=== PATIENT | female | born 1960 | race Caucasian/White ===

== ENCOUNTER 2018-06-20 13:36 | Emergency (ER) | payer BC, OTHER ==
[2018-06-20] MEDS ORDERED: diphenhydrAMINE 50 MG/ML SDV IVPUSH ONE (14:04)
[2018-06-20] MEDS ORDERED: Sodium Chloride 0.9% 10 ML Syringe FLUSH PRN (14:04)
[2018-06-20] MEDS ORDERED: Ketorolac 30 MG/ML SDV IVPUSH ONE (14:04)
[2018-06-20] MEDS ORDERED: Ondansetron 4 MG/2 ML SDV IVPUSH ONE (14:05)
--- NOTE | 2018-06-20 14:11 | EDM.PDOC ---
ED HPI GENERAL MEDICAL PROBLEM - General Chief Complaint: Headache Stated Complaint: MIGRAINE Time Seen by Provider: 06/20/18 13:50 Source of Information: Reports: Patient, RN Notes Reviewed History Limitations: Reports: No Limitations - History of Present Illness INITIAL COMMENTS - FREE TEXT/NARRATIVE: Patient is a 58-year-old female who presents to the ED for the evaluation of a headache. She states that she has a history of migraines, and this has some of the typical features for normal migraine for her however it is quite severe at this time. She states that she is light sensitive with her headaches. She can normally take an aspirin and that holds it off usually and when they get to be more severe she was given tablets of Toradol for her headache relief. She states that she has had the stomach flu yesterday and is having some nausea and vomiting type symptoms and is unable to keep much down for foods or fluids at this time, so she has not been able to keep any of these medications down as well. She states that her primary care provider is Lorraine Gould. She would rate her pain at a 9 out of 10. Headache Pain Score (Numeric/FACES): 9 - Related Data Allergies Allergy/AdvReac Type Severity Reaction Status Date / Time No Known Allergies Allergy Verified 06/20/18 13:44 Home Meds: Home Meds Diltiazem HCl [Diltiazem ER] 1 tab PO DAILY 06/20/18 [History] Ketorolac Eye Drops. 06/20/18 [History] Prednisolone Acetate/Pf [Prednisolone Acet 1% Eye Drop] 1 drop OP ASDIRECTED [History] Venlafaxine HCl [Venlafaxine ER] 1 tab PO DAILY 06/20/18 [History] ED ROS GENERAL - Review of Systems Review Of Systems: See Below Constitutional: Reports: No Symptoms HEENT: Denies: Vision Change Respiratory: Reports: No Symptoms Cardiovascular: Reports: No Symptoms Endocrine: Reports: No Symptoms GI/Abdominal: Reports: No Symptoms : Reports: No Symptoms Musculoskeletal: Reports: No Symptoms Skin: Reports: No Symptoms Neurological: Reports: Headache Psychiatric: Reports: No Symptoms Hematologic/Lymphatic: Reports: No Symptoms Immunologic: Reports: No Symptoms - Physical Exam Exam: See Below Exam Limited By: No Limitations General Appearance: Alert, WD/WN Eye Exam: Bilateral Eye: EOMI, Normal Inspection, PERRL Ears: Normal External Exam Nose: Normal Inspection Throat/Mouth: Normal Inspection, Normal Lips, Normal Teeth, Normal Oropharynx, Normal Voice, No Airway Compromise Head Exam: Atraumatic, Normocephalic Neck: Normal Inspection, Supple, Non-Tender Respiratory/Chest: No Respiratory Distress, Lungs Clear, Normal Breath Sounds, No Accessory Muscle Use, Chest Non-Tender Cardiovascular: Normal Peripheral Pulses, Regular Rate, Rhythm, No Murmur GI/Abdominal: Normal Bowel Sounds, Soft, No Distention, Tender (diffuse abdominal tenderness, d/t vomiting and cough) Neuro Exam (Abbreviated): Alert, Oriented, Normal Cognition, No Motor/Sensory Deficits Extremities: Normal Inspection, Normal Capillary Refill Psychiatric: Normal Affect, Normal Mood Skin Exam: Warm, Dry, Intact, Normal Color, No Rash Course - Vital Signs Last Recorded V/S: Last Vital Signs Temp 97.7 F 06/20/18 13:46 Pulse 88 06/20/18 13:46 Resp BP 145/85 H 06/20/18 13:46 Pulse Ox 96 06/20/18 13:46 - Orders/Labs/Meds Orders: Active Orders 24 hr Category Date Time Status Peripheral IV Care [RC] . DIRECTED Care 06/20/18 14:04 Ordered Sodium Chloride 0.9% [Normal Saline] 1,000 ml Med 06/20/18 14:15 Ordered IV ASDIRECTED Sodium Chloride 0.9% [Saline Flush] Med 06/20/18 14:04 Ordered 10 ml FLUSH ASDIRECTED PRN Peripheral IV Insertion Adult [OM.PC] Routine Oth 06/20/18 14:04 Ordered Medication Orders Sodium Chloride (Normal Saline) 1,000 mls @ 500 mls/hr IV ASDIRECTED ARCELIA Last Admin: 06/20/18 14:15 Dose: 500 mls/hr Sodium Chloride (Saline Flush) 10 ml FLUSH ASDIRECTED PRN PRN Reason: Keep Vein Open Last Admin: 06/20/18 14:20 Dose: 10 ml Meds: Medications Generic Name Dose Route Start Last Admin Trade Name Freq PRN Reason Stop Dose Admin Sodium Chloride 1,000 mls @ 500 mls/hr 06/20/18 14:15 06/20/18 14:15 Normal Saline IV 500 mls/hr ASDIRECTED ARCELIA Administration Sodium Chloride 10 ml 06/20/18 14:04 06/20/18 14:20 Saline Flush FLUSH 10 ml ASDIRECTED PRN Administration Keep Vein Open Discontinued Medications Generic Name Dose Route Start Last Admin Trade Name [place]ip[place] PRN Reason Stop Dose Admin Diphenhydramine HCl 25 mg 06/20/18 14:04 06/20/18 14:18 Benadryl IVPUSH 06/20/18 14:05 25 mg ONETIME ONE Administration Ketorolac Tromethamine 30 mg 06/20/18 14:04 06/20/18 14:17 Toradol IVPUSH 06/20/18 14:05 30 mg ONETIME ONE Administration Ondansetron HCl 4 mg 06/20/18 14:05 06/20/18 14:15 Zofran IVPUSH 06/20/18 14:06 4 mg ONETIME ONE Administration - Re-Assessments/Exams Free Text/Narrative Re-Assessment/Exam: 06/20/18 14:14 Patient presents to the ED for the evaluation of a headache. I have ordered 30 mg IV Toradol, 4 mg IV Zofran, 25 mg IV Benadryl and IV fluids in management of this. Will re-evaluate after the meds have been given and she has gotten some IV fluids to see if she is feeling much better. 06/20/18 15:23 Patient is reevaluated at bedside and she states that her pain is now at a 5 out of 10, will allow the IV fluids to run in and discharge her home. Departure - Departure Time of Disposition: 15:59 Disposition: Home, Self-Care 01 Condition: Fair Clinical Impression: Headache Qualifiers: Headache type: unspecified Headache chronicity pattern: acute headache Intractability: not intractable Qualified Code(s): R51 - Headache - Discharge Information *PRESCRIPTION DRUG MONITORING PROGRAM REVIEWED*: No *COPY OF PRESCRIPTION DRUG MONITORING REPORT IN PATIENT REY: No Instructions: Dehydration, Adult, [id number], Recurrent Migraine Headache, [id number] Referrals: Lorraine Gould PA-C [Primary Care Provider] - Forms: ED Department Discharge Additional Instructions: You have been evaluated in the ED to a for your headache. You have been given IV Toradol, IV Zofran, IV Benadryl and some IV fluids in management of this. Please follow all previous instructions on how to deal with your migraines if one should develop again. Please return to the ED if her symptoms change or worsen. - My Orders Last 24 Hours: My Active Orders 06/20/18 14:04 Peripheral IV Care [RC] . DIRECTED Sodium Chloride 0.9% [Saline Flush] 10 ml FLUSH ASDIRECTED PRN Peripheral IV Insertion Adult [OM.PC] Routine 06/20/18 14:15 Sodium Chloride 0.9% [Normal Saline] 1,000 ml IV ASDIRECTED - Assessment/Plan Last 24 Hours: My Active Orders 06/20/18 14:04 Peripheral IV Care [RC] . DIRECTED Sodium Chloride 0.9% [Saline Flush] 10 ml FLUSH ASDIRECTED PRN Peripheral IV Insertion Adult [OM.PC] Routine 06/20/18 14:15 Sodium Chloride 0.9% [Normal Saline] 1,000 ml IV ASDIRECTED
[2018-06-20] MEDS ORDERED: Sodium Chloride 0.9% 1,000 ML IV SCH (14:15)
== END 2018-06-20 16:06 | disposition home or self-care (01) ==
LOC: JD.ED 13:36
DX: G43.909 Migraine, unspecified, not intractable, without status migrainosus (principal)
CPT/HCPCS: 96361; 96374; 96375; 99283; J1200; J1885; J2405; J7040; 99284

== ENCOUNTER 2019-10-31 09:13 | Emergency (ER) | payer BC ==
[2019-10-31] MEDS ORDERED: Sodium Chloride 0.9% 10 ML Syringe FLUSH PRN (09:27)
[2019-10-31] MEDS ORDERED: Diltiazem 180 MG Cap.CD PO ONE (09:43)
--- NOTE | 2019-10-31 09:49 | EDM.PDOC ---
<EliseoAldo Jannie - Last Filed: 10/31/19 09:44> ED HPI GENERAL MEDICAL PROBLEM - General Chief Complaint: Cardiovascular Problem Stated Complaint: RAPID PULSE Time Seen by Provider: 10/31/19 09:24 Source of Information: Reports: Patient History Limitations: Reports: No Limitations - History of Present Illness INITIAL COMMENTS - FREE TEXT/NARRATIVE: Allie is a 59 YO female that presents to the ED for a feeling of her heart racing and jaw pain. She awoke at approximately 0700 to feel her heart pounding and a tense pain in her left jaw. Also, complains of pain in between her shoulder blades since yesterday. Nothing makes these symptoms better or worse. Denies radiation to arm, diaphoresis, dizziness, syncope, shortness of breath, nausea, vomiting, abdominal pain, diarrhea, constipation. Family history of cardiac disease in her father which occurred when he was in his 70's. Daily smoker that has a history of hypertension. No history of hyperlipidemia or diabetes. Has taken ASA this morning with no change in symptoms. Admits to not taking her cardizem today. Onset: Today, Sudden Onset Date: 10/31/19 Onset Time: 07:00 Duration: Hour(s): Location: Reports: Chest Improves with: Reports: None Worsens with: Reports: None Associated Symptoms: Reports: Other (Pain in left jaw.) Treatments ADVICE NURSE: Reports: Aspirin - Related Data Allergies Allergy/AdvReac Type Severity Reaction Status Date / Time No Known Allergies Allergy Verified 10/31/19 09:23 Home Meds: Home Meds Prednisolone Acetate/Pf [Prednisolone Acet 1% Eye Drop] 1 drop OP ASDIRECTED 06/20/18 [History] Venlafaxine HCl [Venlafaxine ER] 75 mg PO DAILY 06/20/18 [History] dilTIAZem HCl [Diltiazem ER] 1 tab PO DAILY 06/20/18 [History] Past Medical History Cardiovascular History: Reports: Hypertension Neurological History: Reports: Migraines - Past Surgical History HEENT Surgical History: Reports: Eye Surgery, Oral Surgery, Retinal Musculoskeletal Surgical History: Reports: Other (See Below) Other Musculoskeletal Surgeries/Procedures:: Foot Surgery Social & Family History - Tobacco Use Smoking Status *Q: Current Every Day Smoker Years of Tobacco use: 45 Packs/Tins Daily: 0.5 - Caffeine Use Caffeine Use: Reports: Coffee - Recreational Drug Use Recreational Drug Use: No ED ROS GENERAL - Review of Systems Review Of Systems: See Below Constitutional: Denies: Fever, Diaphoresis, Decreased Appetite HEENT: Reports: Other (States she can hear heart beat in ears.). Denies: Vision Change Respiratory: Reports: Cough. Denies: Shortness of Breath Cardiovascular: Reports: Chest Pain. Denies: Lightheadedness, Syncope GI/Abdominal: Denies: Abdominal Pain, Constipation, Diarrhea, Decreased Appetite, Nausea, Vomiting Neurological: Denies: Dizziness, Numbness, Syncope, Tingling ED EXAM, GENERAL - Physical Exam Exam: See Below Exam Limited By: No Limitations General Appearance: Alert, No Apparent Distress Eye Exam: Bilateral Eye: PERRL Head: Atraumatic, Normocephalic Respiratory/Chest: No Respiratory Distress, Lungs Clear, Normal Breath Sounds, No Accessory Muscle Use, Chest Non-Tender Cardiovascular: Regular Rate, Rhythm, No Gallop, No JVD, No Murmur, No Rub GI/Abdominal: Normal Bowel Sounds, Soft, Non-Tender, No Distention Back Exam: Muscle Spasm (Located at T1. ) Neurological: Alert, Oriented, Normal Cognition Skin Exam: Warm, Dry, Normal Color Departure - Departure Disposition: Home, Self-Care 01 Clinical Impression: Atypical chest pain Referrals: Lorraine Gould PA-C [Primary Care Provider] - 1 Week Forms: ED Department Discharge Additional Instructions: Take your medication as prescribed. Follow up with your provider within a week. Please return if you are worse. Our radiologist said there is some signs of emphysema on your chest x-ray. It may be time to consider stopping smoking. Take some motrin or tylenol for pain. Sepsis Event Note (ED) - Evaluation Sepsis Screening Result: No Definite Risk <Darrius Spence - Last Filed: 10/31/19 12:47> Course - Vital Signs Last Recorded V/S: Last Vital Signs Temp 97.4 F 10/31/19 09:20 Pulse 81 10/31/19 09:20 Resp 16 10/31/19 09:20 BP 188/117 H 10/31/19 09:20 Pulse Ox 96 10/31/19 09:20 - Orders/Labs/Meds Orders: Active Orders 24 hr Category Date Time Status Cardiac Monitoring [RC] . DIRECTED Care 10/31/19 09:27 Active EKG Documentation Completion [RC] ASDIRECTED Care 10/31/19 11:56 Active EKG Documentation Completion [RC] STAT Care 10/31/19 09:27 Active Peripheral IV Care [RC] . DIRECTED Care 10/31/19 09:27 Active Sodium Chloride 0.9% [Saline Flush] Med 10/31/19 09:27 Active 10 ml FLUSH ASDIRECTED PRN Peripheral IV Insertion Adult [OM.PC] Stat Oth 10/31/19 09:27 Ordered EKG 12 Lead [EK] Stat Ther 10/31/19 11:56 Ordered Medication Orders Sodium Chloride (Saline Flush) 10 ml FLUSH ASDIRECTED PRN PRN Reason: Keep Vein Open Last Admin: 10/31/19 09:30 Dose: 10 ml Documented by: TRAM Labs: Laboratory Tests 10/31/19 10/31/19 10/31/19 Range/Units 09:20 09:20 09:20 WBC 7.37 (3.98-10.04) K/mm3 RBC 5.02 (3.98-5.22) M/mm3 Hgb 14.6 (11.2-15.7) gm/dl Hct 44.0 (34.1-44.9) % MCV 87.6 (79.4-94.8) fl MCH 29.1 (25.6-32.2) pg MCHC 33.2 (32.2-35.5) g/dl RDW Std Deviation 43.9 (36.4-46.3) fL Plt Count 312 (182-369) K/mm3 MPV 9.3 L (9.4-12.3) fl Neut % (Auto) 68.1 (34.0-71.1) % Lymph % (Auto) 19.8 (19.3-51.7) % [place] % (Auto) 9.6 (4.7-12.5) % Eos % (Auto) 1.9 (0.7-5.8) Baso % (Auto) 0.5 (0.1-1.2) % Neut # (Auto) 5.01 (1.56-6.13) K/mm3 Lymph # (Auto) 1.46 (1.18-3.74) K/mm3 [place] # (Auto) 0.71 H (0.24-0.36) K/mm3 Eos # (Auto) 0.14 (0.04-0.36) K/mm3 Baso # (Auto) 0.04 (0.01-0.08) K/mm3 D-Dimer, Quantitative 0.24 (0.19-0.50) mg/L Sodium 138 (136-145) mEq/L Potassium 4.4 (3.5-5.1) mEq/L Chloride 102 (98-107) mEq/L Carbon Dioxide 29 (21-32) mEq/L Anion Gap 11.4 (5-15) BUN 14 (7-18) mg/dL Creatinine 1.1 H (0.55-1.02) mg/dL Est Cr Clr Drug Dosing 50.91 mL/min Estimated GFR (MDRD) 51 (>60) mL/min BUN/Creatinine Ratio 12.7 L (14-18) Glucose 100 (74-106) mg/dL Calcium 8.9 (8.5-10.1) mg/dL Total Bilirubin 0.3 (0.2-1.0) mg/dL AST 23 (15-37) U/L ALT 31 (14-59) U/L Alkaline Phosphatase 93 (46-116) U/L Troponin I < 0.017 (0.00-0.056) ng/mL Total Protein 7.3 (6.4-8.2) g/dl Albumin 3.9 (3.4-5.0) g/dl Globulin 3.4 gm/dL Albumin/Globulin Ratio 1.2 (1-2) TSH 3rd Generation 3.819 H (0.358-3.74) uIU/mL 10/31/19 Range/Units 12:05 WBC (3.98-10.04) K/mm3 RBC (3.98-5.22) M/mm3 Hgb (11.2-15.7) gm/dl Hct (34.1-44.9) % MCV (79.4-94.8) fl MCH (25.6-32.2) pg MCHC (32.2-35.5) g/dl RDW Std Deviation (36.4-46.3) fL Plt Count (182-369) K/mm3 MPV (9.4-12.3) fl Neut % (Auto) (34.0-71.1) % Lymph % (Auto) (19.3-51.7) % [place] % (Auto) (4.7-12.5) % Eos % (Auto) (0.7-5.8) Baso % (Auto) (0.1-1.2) % Neut # (Auto) (1.56-6.13) K/mm3 Lymph # (Auto) (1.18-3.74) K/mm3 [place] # (Auto) (0.24-0.36) K/mm3 Eos # (Auto) (0.04-0.36) K/mm3 Baso # (Auto) (0.01-0.08) K/mm3 D-Dimer, Quantitative (0.19-0.50) mg/L Sodium (136-145) mEq/L Potassium (3.5-5.1) mEq/L Chloride (98-107) mEq/L Carbon Dioxide (21-32) mEq/L Anion Gap (5-15) BUN (7-18) mg/dL Creatinine (0.55-1.02) mg/dL Est Cr Clr Drug Dosing mL/min Estimated GFR (MDRD) (>60) mL/min BUN/Creatinine Ratio (14-18) Glucose (74-106) mg/dL Calcium (8.5-10.1) mg/dL Total Bilirubin (0.2-1.0) mg/dL AST (15-37) U/L ALT (14-59) U/L Alkaline Phosphatase (46-116) U/L Troponin I < 0.017 (0.00-0.056) ng/mL Total Protein (6.4-8.2) g/dl Albumin (3.4-5.0) g/dl Globulin gm/dL Albumin/Globulin Ratio (1-2) TSH 3rd Generation (0.358-3.74) uIU/mL Meds: Medications Generic Name Dose Route Start Last Admin Trade Name Freq PRN Reason Stop Dose Admin Sodium Chloride 10 ml 10/31/19 09:27 10/31/19 09:30 Saline Flush FLUSH 10 ml ASDIRECTED PRN Administration Keep Vein Open Discontinued Medications Generic Name Dose Route Start Last Admin Trade Name Freq PRN Reason Stop Dose Admin Diltiazem HCl 180 mg 10/31/19 09:43 10/31/19 10:10 Cardizem Cd PO 10/31/19 09:44 180 mg ONETIME ONE Administration - Re-Assessments/Exams Free Text/Narrative Re-Assessment/Exam: 10/31/19 12:09 I examined the patient myself and I agree with Aldo's assessment and plan. I ordered an IV saline lock, EKG, CXR and labs. The patient did take aspirin before arrival. Her EKG shows a NSR with no acute changes. Her CXR shows nothing acute. Her CBC looks good. Her creatinine was slightly elevated at 1.1. Her troponin is negative. Her TSH was slightly elevated at 3.819. I have ordered a repeat EKG and troponin. 10/31/19 12:44 Her EKG shows no changes from prior and her repeat troponin is negative. I will discharge her home. Departure - Departure Time of Disposition: 12:45 Condition: Good Sepsis Event Note (ED) - Focused Exam Vital Signs: Vital Signs Temp Pulse Resp BP Pulse Ox 10/31/19 09:20 97.4 F 81 16 188/117 H 96 - My Orders Last 24 Hours: My Active Orders 10/31/19 09:27 Cardiac Monitoring [RC] . DIRECTED EKG Documentation Completion [RC] STAT Peripheral IV Care [RC] . DIRECTED Sodium Chloride 0.9% [Saline Flush] 10 ml FLUSH ASDIRECTED PRN Peripheral IV Insertion Adult [OM.PC] Stat 10/31/19 11:56 EKG Documentation Completion [RC] ASDIRECTED EKG 12 Lead [EK] Stat - Assessment/Plan Last 24 Hours: My Active Orders 10/31/19 09:27 Cardiac Monitoring [RC] . DIRECTED EKG Documentation Completion [RC] STAT Peripheral IV Care [RC] . DIRECTED Sodium Chloride 0.9% [Saline Flush] 10 ml FLUSH ASDIRECTED PRN Peripheral IV Insertion Adult [OM.PC] Stat 10/31/19 11:56 EKG Documentation Completion [RC] ASDIRECTED EKG 12 Lead [EK] Stat
--- NOTE | 2019-10-31 12:16 | CR ---
Chest: PA and lateral views of the chest were obtained. Comparison: No prior chest imaging is available. Heart size is normal. Tortuous thoracic aorta is seen. Lungs are clear but hyperinflated. Scattered disc space narrowing is noted within the spine with scattered endplate osteophytes. Mild scoliosis is noted. Impression: 1. Possible emphysematous change. 2. Other findings as noted above. Nothing acute is seen on 2 view chest x-ray. Diagnostic code #2 This report was dictated in MDT
== END 2019-10-31 13:05 | disposition home or self-care (01) ==
LOC: JD.ED 09:13
DX: R07.89 Other chest pain (principal); R00.2 Palpitations; R68.84 Jaw pain; I10 Essential (primary) hypertension; G43.909 Migraine, unspecified, not intractable, without status migrainosus; F17.210 Nicotine dependence, cigarettes, uncomplicated; Z98.890 Other specified postprocedural states; Z79.899 Other long term (current) drug therapy
CPT/HCPCS: 36415; 71046; 80053; 84443; 84484; 85025; 85379; 93005; 99285; A9270; 93010; 99284